=== PATIENT | male | born 1955 | race Caucasian/White ===

== ENCOUNTER 2024-01-13 12:39 | Day surgery (SDC) | payer BC ==
[~2024-01-13] VITALS: Ht 188 cm; Wt 82.0 kg
[2024-01-13] MEDS ORDERED: ATOR40TA (12:50)
[2024-01-13] MEDS ORDERED: Tessalon200 MG (12:50)
[2024-01-13] MEDS ORDERED: OMEP20ER (12:51)
[2024-01-13] MEDS ORDERED: TRAZ50 (12:51)
[2024-01-13] MEDS ORDERED: Lactated Ringer's 1,000 ML IV ONE ×3 (13:09→14:45)
[2024-01-13] MEDS ORDERED: propofoL 50 ML IV ONE ×2 (14:06→14:27)
[2024-01-13] MEDS ORDERED: Ipratropium/Albuterol SulF 2.5-0.5MG/3 ML Amp ONE (15:11)
--- NOTE | 2024-01-13 16:04 | NUR ---
01/13/24 1604 JUNE BLANDON THIS PT REQUIRES ANES. FOR NEXT CASE PER , AND MYSELF D/T RESPIRATORY COMPLICATIONS IN PROCEDURE. END NOTE ORSC.RDS
--- NOTE | 2024-01-13 16:17 | NUR ---
01/13/24 1617 JUNE BLANDON 1X VO EMILY POST PER DR.ALEX BARRON.
[2024-01-13 16:26] VITALS: BP 122/69
== END 2024-01-13 15:45 | disposition home or self-care (01) ==
LOC: ORSCSDS 12:39
PROVIDERS: Surgery
PROC: 0DJ08ZZ Inspection of Upper Intestinal Tract, Via Natural or Artificial Opening Endoscopic (ICD-10-PCS; principal; 2024-01-13 14:00)
PROC: 0DBP8ZX Excision of Rectum, Via Natural or Artificial Opening Endoscopic, Diagnostic (ICD-10-PCS; principal; 2024-01-13 14:00)
PROC: 0DBK8ZX Excision of Ascending Colon, Via Natural or Artificial Opening Endoscopic, Diagnostic (ICD-10-PCS; principal; 2024-01-13 14:00)
DX: K21.9 Gastro-esophageal reflux disease without esophagitis (principal); K44.9 Diaphragmatic hernia without obstruction or gangrene; Z12.11 Encounter for screening for malignant neoplasm of colon; D12.2 Benign neoplasm of ascending colon; K62.1 Rectal polyp; K57.30 Diverticulosis of large intestine without perforation or abscess without bleeding; K64.4 Residual hemorrhoidal skin tags; K64.1 Second degree hemorrhoids; Z86.010 Personal history of colon polyps; J44.9 Chronic obstructive pulmonary disease, unspecified; N40.0 Benign prostatic hyperplasia without lower urinary tract symptoms; E78.00 Pure hypercholesterolemia, unspecified; E78.5 Hyperlipidemia, unspecified; F41.9 Anxiety disorder, unspecified; G25.81 Restless legs syndrome; Z85.46 Personal history of malignant neoplasm of prostate; Z85.53 Personal history of malignant neoplasm of renal pelvis; Z79.899 Other long term (current) drug therapy; F17.210 Nicotine dependence, cigarettes, uncomplicated
CPT/HCPCS: 88305; J2704; J7120